=== PATIENT | female | born 1970 | race African-American/Black ===

== ENCOUNTER 2019-02-22 00:42 | Emergency (ER) | payer OTHER ==
--- NOTE | 2019-02-22 01:03 | PDOC ---
History of Present Illness - General Stated Complaint: ABD PAIN Time Seen by Provider: 02/22/19 01:02 History Source: Patient Exam Limitations: Physical Impairment (past coma/TBI, poor historian) Past History - Travel Traveled outside of the country in the last 30 days: No Close contact w/someone who was outside of country & ill: No Review of Systems - Review of Systems Able to Perform ROS?: Yes Is the patient limited [place] proficient: Yes *Physical Exam - Physical Exam Comments: Vitals stable, pt afebrile. Pt in NAD, normal body habitus. Pt alert and oriented x3. retail office associate generally intact, muscular strength and sensation intact. No midline spinal tenderness, step-offs, or crepitus. Head normocephalic, atraumatic. Eyes PERRLA, EOMI. Oropharynx without erythema or exudates, no LAD b/l. No nasal congestion, hearing intact. Clear heart sounds, S1/S2, no JVD, b/l pedal edema, or heart murmur. Clear lung sounds, no respiratory distress, wheezes, crackles, or accessory muscle use. No abdominal or CVA tenderness to palpation, no rebound, no guarding. Abdomen soft, non-distended, and with normoactive bowel sounds. Skin without jaundice or rash. 02/22/19 02:28 ED Treatment Course - LABORATORY CBC & Chemistry Diagram: 02/22/19 02:15 02/22/19 02:15 Medical Decision Making - Medical Decision Making Pt was seen at bedside, also will be seen by attending Dr. Holm. Pt presenting with complaints of diffuse abdominal pain and worsening distension over the past 3 days, associated with nausea and vomiting of everything she tries to eat. Considering obstruction (pt has prior abdominal surgeries) vs colitis/ diverticulitis vs cholecystitis vs pancreatitis vs enteritis vs / ectopic vs ovarian cyst/rupture vs UTI vs ischemic colitis. Ordered work-up including CBC, CMP, Mg, lipase, lactic acid, cardiac profile, UA , urine culture, serum , ECG. Provided 1 L IV NS and 1 g IV ofirmev for improvement of discomfort. Will continue to reassess pt and monitor for symptomatic improvement. ECG: NSR, intervals WNL. No TWIs or significant ST segment changes. No significant changes from prior ECG. 02/22/19 02:28 CBC and CMP generally WNL Lactic 0.9 Lipase 277 Trop <.02 Serum negative. UA +LE, +bacteria +WBC, nitrite negative -- will treat as pt has abdominal pain. Providing 500 mg PO Keflex. Pt still has diffuse abdominal pain, tenderness to suprapubic and RUQ. Ordered CT abd/pelvis with IV contrast to eval for ivonne or obstruction. Pt still complaining of abdominal pain, providing 20 mg IV pepcid. Pt being taken for CT scan. 02/22/19 03:55
[2019-02-22 01:07] VITALS: BP 163/99; PULSE 93; TEMP 98.1
[2019-02-22 01:12] VITALS: BMI 25.0
[2019-02-22] MEDS ORDERED: ACETAMINOPHEN 1000 MG/100 ML VIAL (NON FORMULARY) IVPB ONE (01:54)
[2019-02-22] MEDS ORDERED: SODIUM CHLORIDE 1,000 ML IV STA (01:54)
--- NOTE | 2019-02-22 02:17 | PDOC ---
Attending Attestation - Resident Resident Name: Lor Rojo - ED Attending Attestation I have performed the following: I have examined & evaluated the patient, The case was reviewed & discussed with the resident, I agree w/resident's findings & plan, Exceptions are as noted
[2019-02-22] MEDS ORDERED: ACETAMINOPHEN INJECTION 100 ML IVPB ONE (02:22)
[2019-02-22 02:30] LABS: BASO % 0.8 % (0-2.0); EOS % 1.5 % (0-4.5); HEMATOCRIT 36.7 % (32.4-45.2); HEMOGLOBIN 11.9 GM/dL (10.7-15.3); LYMPH % 26.6 % (8-40); MCH 28.8 pg (25.7-33.7); MCHC 32.3 g/dl (32.0-36.0); MEAN CELL VOLUME 89.1 fl (80-96); MEAN PLT VOLUME 7.5 fl (7.5-11.1); MONO % 11.4 % (3.8-10.2); NEUT % 59.7 % (42.8-82.8); PLATELET COUNT 339 K/MM3 (134-434); RBC 4.12 M/mm3 (3.60-5.2); RDW 14.2 % (11.6-15.6); WHITE BLOOD COUNT 6.9 K/mm3 (4.0-10.0)
[2019-02-22 02:46] LABS: INR 0.95 (0.83-1.09); PROTHROMBIN TIME (PATIENT) 11.2 SEC (9.7-13.0)
[2019-02-22 02:58] LABS: ALBUMIN 3.6 g/dl (3.4-5.0); ALK PHOS 66 U/L (45-117); ANION GAP 6 MMOL/L (8-16); BILIRUBIN,TOTAL 0.2 mg/dL (0.2-1); BLOOD UREA NITROGEN 18 mg/dL (7-18); CALCIUM 8.4 mg/dL (8.5-10.1); CHLORIDE 107 mmol/L (98-107); CO2 24 mmol/L (21-32); CREATININE 0.8 mg/dL (0.55-1.3); GLUCOSE,RANDOM 117 mg/dL (74-106); LIPASE 277 U/L (73-393); POTASSIUM 3.7 mmol/L (3.5-5.1); SGOT/AST 21 U/L (15-37); SGPT/ALT 26 U/L (13-61); SODIUM 137 mmol/L (136-145); TOT PROT 7.9 g/dl (6.4-8.2)
[2019-02-22 02:58] LABS: EPI CELLS 5.8 /HPF (0-5/HPF); PH,URINE 7.5 (5.0-8.0); URINE APPEARANCE CLEAR; URINE BACTERIA 37.9 /hpf (NEGATIVE); URINE BILIRUBIN NEGATIVE (NEGATIVE); URINE CASTS 1 /lpf (0-8); URINE COLOR YELLOW; URINE GLUCOSE (UA) NEGATIVE (NEGATIVE); URINE KETONE NEGATIVE (NEGATIVE); URINE LEUK ESTERASE 2+ (NEGATIVE); URINE NITRITE NEGATIVE (NEGATIVE); URINE PROTEIN NEGATIVE (NEGATIVE); URINE RBC 1 /hpf (0-4); URINE UROBILINOGEN 0.2 mg/dL (0.2-1.0); URINE WBC 5 /hpf (0-5)
[2019-02-22] MEDS ORDERED: FAMOTIDINE 20 MG/50 ML IVPB 20 MG/50 ML MG IVPB ONE ×2 (03:49→03:51)
[2019-02-22] MEDS ORDERED: CEPHALEXIN MONOHYDRATE 500 MG CAPSULE (UD) PO ONE (03:57)
[2019-02-22] MEDS ORDERED: CEPHALEXIN MONOHYDRATE 500 MG CAPSULE (UD) ONE (04:20)
--- NOTE | 2019-02-22 10:37 | EKG ---
Test Reason : Blood Pressure : / mmHG Vent. Rate : 081 BPM Atrial Rate : 081 BPM P-R Int : 164 ms QRS Dur : 072 ms QT Int : 384 ms P-R-T Axes : 060 039 046 degrees QTc Int : 446 ms POOR DATA QUALITY, INTERPRETATION MAY BE ADVERSELY AFFECTED NORMAL SINUS RHYTHM POSSIBLE LEFT ATRIAL ENLARGEMENT NO PREVIOUS ECGS AVAILABLE Confirmed by ELROY SHAVER MD ([id number]) on 02/22/2019 10:36:41 AM Referred By: Confirmed By:ELROY SHAVER MD
== END 2019-02-22 05:29 | disposition home or self-care (01) ==
LOC: JER 00:42
PROC: 3E033NZ Introduction of Analgesics, Hypnotics, Sedatives into Peripheral Vein, Percutaneous Approach (ICD-10-PCS; principal; 2019-02-22)
PROC: 3E033GC Introduction of Other Therapeutic Substance into Peripheral Vein, Percutaneous Approach (ICD-10-PCS; 2019-02-22)
PROC: 3E0337Z Introduction of Electrolytic and Water Balance Substance into Peripheral Vein, Percutaneous Approach (ICD-10-PCS; 2019-02-22)
DX: R10.9 Unspecified abdominal pain (principal)
CPT/HCPCS: 36415; 74177-TC; 80053; 81003; 82550; 82962; 83605; 83690; 83735; 84484; 84703; 85025; 85610; 86850; 86900; 86901; 87086; 93005; 93010; 96361; 96365; 96375; 99283-25; J0131; J7030